=== PATIENT | female | born 1950 | race Caucasian/White ===

== ENCOUNTER → 2017-02-08 | Outpatient (CLI) | payer OTHER ==
[~2017-02-08] MED LIST: ALPRAZOLAM PO; ALPRAZOLAM0.25 MG PO; ASPIRIN PO; AUGMENTIN1 TAB.SR1 PO; CIPRO PO; CO Q-10 PO; GLUCOPHAGE XR500 MG PO; GLUCOTROL PO; LIPITOR PO; LISINOPRIL2.5 MG PO; LOPID600 MG PO; METFORMIN HCL1000 M1 PO; METFORMIN PO; NEURONTIN PO; NIACIN PO; PERCOCET5/325 PO; SIMVASTATIN80 MG PO; SYSTANE 0.3-0.415 ML OU; SYSTANE EYE DROPS; VITAMIN B12 SUBQ; ZESTRIL2.5 M1 PO
--- NOTE | ~2017-02-08 | CT137 ---
[facility]. [facility] A Service of [facility] & [facility] RADIOLOGY TEXT RESULTS PATIENT: CARLOS GREGORIO LOCATION: [facility] : 48 UNIT #: [id number] AGE: [address]: Ting Levin MD SEX: F ORDER DR: [id number] [address] [address] [id number] O MR#: [id number] Acc #: [id number] NAME: CARLOS GREGORIO : 1950 SEX: F STUDY DATE/TIME: 02/08/2017 8:50 UNIT: [facility] ROOM: STUDY DESCRIPTION: CT Lung Screening annual Attending Physician: Ting Levin M.D. Referring Physician: Ting Levin M.D. Ordering Physician: Ting Levin M.D. Primary Care Physician: Ting Levin M.D. MEDICAL IMAGING REPORT This report is preliminary unless electronic signature is present. EXAM CT chest without contrast lung cancer screening INDICATIONS 57 pack-year total smoking history. Current smoker. TECHNIQUE CT chest performed without contrast using the low-dose lung cancer screening protocol. Coronal and sagittal reformatted images were obtained. CT dose index 2.[address] examination was performed with one or more of the following radiation dose reduction techniques: automatic exposure control, adjustment of mA and/or kV according to patient size, and iterative reconstruction. COMPARISON 12/11/2015. FINDINGS Stable micronodule in the right upper lobe. Stable scarring in the medial aspect of the right middle lobe with adjacent calcified granuloma. New parenchymal density that is more or less curvilinear in the medial left upper lobe measuring about 1.3 cm. Stable left mastectomy. Calcified mediastinal lymph nodes. No suspicious lymphadenopathy. No pleural effusion. Limited imaging of the upper abdomen is unremarkable. Bone windows are unremarkable. IMPRESSION 1. There is a new parenchymal density in the medial left upper lobe that is more or less curvilinear not very nodular. I suspect its probably some atelectasis or scar. However, based on the ACR Lung-RADS criteria this would be a 4a study and I would recommend a 3-month followup chest CT to evaluate for stability or clearing. STS. [facility] A Service of [facility] & [facility] RADIOLOGY TEXT RESULTS PATIENT: CARLOS GREGORIO LOCATION: [facility] : 48 UNIT #: [id number] AGE: [address]: Ting Levin MD SEX: F ORDER DR: 2. Additional findings as described above. Dictated by... Ilan Lucero M.D. THIS IS AN ELECTRONICALLY VERIFIED REPORT Ilan Lucero M.D. at 02/09/2017 2:47 PM TESHA/anila TD: 02/08/2017 11:15 JOB #: [id number] MEDICAL IMAGING REPORT Page 1 of 1
== END | disposition home or self-care (01) ==
LOC: SCT 08:35
DX: F17.210 Nicotine dependence, cigarettes, uncomplicated (principal)
CPT/HCPCS: G0297